=== PATIENT | male | born 1975 | race Caucasian/White ===

== ENCOUNTER → 2017-02-03 | Outpatient (CLI) | payer OTHER | END | disposition home or self-care (01) | LOC: CFH 15:42 | PROVIDERS: ATTEND Family Medicine | DX: D40.12 Neoplasm of uncertain behavior of left testis (principal); I86.1 Scrotal varices | CPT/HCPCS: 76870 ==

== ENCOUNTER 2018-12-22 21:54 | Emergency (ER) | payer OTHER ==
[~2018-12-22] VITALS: Ht 172.7 cm; Wt 103.6 kg
[2018-12-22] MEDS ORDERED: ONDANSETRON 2MG/ML, 2ML ONE (22:22)
[2018-12-22] MEDS ORDERED: HYDROmorphone 2 MG/ML, 1ML ONE (22:23)
[2018-12-22] MEDS ORDERED: ONDANSETRON 2MG/ML, 2ML IVPush ONE (22:30)
[2018-12-22] MEDS ORDERED: HYDROmorphone 2 MG/ML, 1ML IVPush PRN (22:30)
[2018-12-22] MEDS ORDERED: SODIUM CHLORIDE FLUSH 10ML SYR IVF ONE (22:30)
[2018-12-22 22:37] LABS: BASOPHILS # (AUTO) 0.01 x10^3/uL (0-0.1); BASOPHILS % (AUTO) 0 % (0-1); EOSINOPHILS # (AUTO) 0.03 x10^3/uL (0-0.4); EOSINOPHILS % (AUTO) 0 % (1-7); LYMPHOCYTES # (AUTO) 1.42 x10^3/uL (1-3.4); LYMPHOCYTES % (AUTO) 14 % (22-44); MD NO; MEAN CORPUSCULAR HEMOGLOBIN 30.1 pg (27.5-34.5); MEAN CORPUSCULAR HGB CONC 33.2 g/dL (33.2-36.2); MEAN CORPUSCULAR VOLUME 90.4 fL (81-97); MEAN PLATELET VOLUME 8.7 fL (7.4-10.4); MONOCYTES # (AUTO) 0.62 x10^3/uL (0.2-0.8); MONOCYTES % (AUTO) 6 % (2-9); NEUTROPHILS # (AUTO) 7.86 x10^3/uL (1.8-6.8); NEUTROPHILS % (AUTO) 79 % (42-75); PLATELET COUNT 198 x10^3/uL (130-400); RED BLOOD COUNT 5.31 x10^6/uL (4.38-5.82); RED CELL DISTRIBUTION WIDTH 13.2 % (9.4-14.8)
[2018-12-22 22:46] LABS: ANION GAP 11 mmol/L (5-15); CALCIUM 8.8 mg/dL (8.5-10.1); CHLORIDE 110 mmol/L (98-107); CREATININE 1.34 mg/dL (0.7-1.3)
[2018-12-22 22:47] LABS: ALANINE AMINOTRANSFERASE 43 U/L (12-78); ALBUMIN 4.4 g/dL (3.4-5.0)
[2018-12-22 22:49] LABS: ALKALINE PHOSPHATASE 72 U/L (45-117); BILIRUBIN,TOTAL 1.5 mg/dL (0.2-1.0); TOTAL PROTEIN 7.8 g/dL (6.4-8.2)
[2018-12-22] MEDS ORDERED: OMNIPAQUE 350 MG/ML, 100ML BOTTLE ONE (23:25)
[2018-12-22 23:35] LABS: MICROSCOPIC NOT IND
[2018-12-22 23:38] LABS: CULTURE INDICATED? NO
[2018-12-22] MEDS ORDERED: methylPREDNISolone SOD SUCC 125 MG/2 ML IVPush STA (23:49)
[2018-12-23] MEDS ORDERED: KETOROLAC 30 MG/1 ML IVPush ONE
[2018-12-23] MEDS ORDERED: methylPREDNISolone SOD SUCC 125 MG/2 ML ONE (00:06)
[2018-12-23] MEDS ORDERED: KETOROLAC 30 MG/1 ML ONE (00:06)
[2018-12-23 00:27] VITALS: BP 136/78
== END 2018-12-23 00:31 | disposition home or self-care (01) ==
LOC: ED 22:16
DX: M54.16 Radiculopathy, lumbar region (principal)
CPT/HCPCS: 36415; 74177; 80053; 81003; 83690; 85025; 96374; 96375; 99284; J1170; J1885; J2405; J2930; Q9967